=== PATIENT | male | born 1960 | race Caucasian/White ===

== ENCOUNTER 2016-12-24 21:04 | Inpatient (IN) ==
[2016-12-24] MEDS: NS 1,000 ML IV ONE ×4 (21:25→21:33)
[2016-12-24] MEDS ORDERED: ZOFRAN IV ONE (21:35)
[2016-12-24 21:45] LABS: BASO% 0.8 % (0.0-0.8); EOS# 0.09 X1000 (0.0-0.7); EOS% 0.4 % (0.0-10.0); HEMATOCRIT 46.6 % (42.0-52.0); HEMOGLOBIN 15.7 g/dL (14.0-18.0); IMM GRAN# 0.06 X1000 (0.0-0.04); IMM GRAN% 0.3 % (0.0-0.5); LYMPH# 3.15 X1000 (1.2-3.4); LYMPH% 15.5 % (20.5-51.1); MANUAL DIFF NEEDED? NO; MCH 29.9 PG (27-31); MCHC 33.7 g/dL (33-37); MCV 88.8 FL (81-99); MONO% 4.9 % (1.7-9.3); MPV 10.6 FL (7.4-10.4); NEUT% 78.1 % (42.2-75.2); PLT 369 X1000 (130-400); RBC 5.25 XMIL (4.7-6.1)
[2016-12-24] MEDS ORDERED: NS 1,000 ML ONE (21:51)
[2016-12-24] MEDS ORDERED: NS 1,000 ML IV ONE ×2 (21:55→21:58)
[2016-12-24 22:07] LABS: ALBUMIN 4.7 g/dL (3.5-5.0); POTASSIUM 4.4 mmol/L (3.5-5.1); TOTAL BILIRUBIN 0.35 mg/dL (0.20-1.00); TOTAL PROTEIN 7.8 g/dL (6.3-8.3)
--- NOTE | 2016-12-24 22:38 | Diag Imaging Result Doc PS360 ---
EXAM: ABDOMEN/PELVIS W/O CONTRAST HISTORY: vomiting, hypotensive TECHNIQUE: COMPARISON: 04/12/2015 FINDINGS: No calcified gallstones or adjacent inflammation. I believe there is at least mild fatty infiltration of the liver. Normal spleen and adrenal glands. Normal noncontrasted pancreas. There is a 5.5 cm left renal cyst. No renal stones. No hydronephrosis. No aortic aneurysm. No bowel obstruction. There is a large right inguinal hernia containing bowel loops. No bowel obstruction. Normal appendix. There are scattered diverticula particularly in the descending and sigmoid colon. No abscess. The urinary bladder is not distended. 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 Electronically signed by Samuel Aguilar 12/24/2016 10:35 PM
[2016-12-24] MEDS ORDERED: VANCOMYCIN 1 GM/NS 1 GM/250 ML IVPB IV ONE (23:01)
[2016-12-24] MEDS ORDERED: ZOSYN 3.375 GM/NS 3.375 GM/50 ML IVPB IV ONE (23:01)
--- NOTE | 2016-12-24 23:02 | ED EKG INTERP ---
This chart was entered by Lisa Boyd Scribe, acting as scribe for Ramon Greer MD. EKG Interpretation - EKG Time of EKG reading by physician:: 21:01 EKG Read and Signed by:: Ramon Greer EKG Interpretation (*Must complete 3 of following elements*): Normal Rate: 103 Rhythm: Sinus Tachycardia Comments: Borderline ECG, Possible left atrial enlargement This chart was documented by the indicated scribe, (Lisa Boyd Scribe) and accurately reflects the services I performed and decisions made by me, Ramon Greer MD, as attested by the provider's signature.
[2016-12-24] MEDS: LEVOPHED 8 MG in D5 1/2 NS 250 ML IV SCH ×3 (23:20→23:49)
--- NOTE | 2016-12-24 23:32 | PROVIDER DOCUMENTATION ---
This chart was entered by Lisa Boyd Scribe, acting as scribe for Ramon Greer MD. HPI-Chest Pain - General Chief Complaint: Chest Pain Stated Complaint: PALPATITIONS Time Seen by Provider: 12/24/16 21:33 Source: patient Allergies/Adverse Reactions: Patient Allergies Allergy/AdvReac Type Severity Reaction Status Date / Time latex Allergy RASH Verified 12/24/16 21:41 shellfish derived Allergy SWELLING Verified 12/24/16 21:41 Home Medications: Home Medication List Medication Instructions Recorded Confirmed Last Taken Type Lisinopril 20 mg PO DAILY 10/13/16 12/24/16 12/24/16 History Cholecalciferol (Vit D3) [Vitamin 0 unit PO TH 12/24/16 12/24/16 12/18/16 History D3] UNK Metformin [Glucophage] 500 mg PO BID CC 12/24/16 12/24/16 12/24/16 History Omeprazole [Prilosec] 40 mg PO DAILY@0700 12/24/16 12/24/16 12/24/16 History Sertraline HCl 100 mg PO DAILY 12/24/16 12/24/16 12/24/16 History - History of Present Illness-CP Nature of Presenting Problem: 56 Y/O M presents to ED with Chest Pain. Pt states V which began last night and denies Diarrhea. C/o of mild epigastric cramping pain, and now pressure. Weak, dizzy, diaphoretic, for the last few hours. Location: reports: epigastric Chest Pain Radiation: reports: no radiation Quality of Pain: reports: cramping, pressure Severity in ED: moderate Onset/Duration: last night Timing: still present Context/Activities at Onset: reports: none Associated Symptoms: reports: diaphoresis, dizziness, vomiting, weakness. denies: fever/chills, shortness of breath, syncope Nitro Today/Relief: no nitro taken today Aspirin Treatment Today: no aspirin today Similar Symptoms Previously?: No Recently Seen Here or By Another Healthcare Provider: No Review of Systems - Adult - REVIEW OF SYSTEMS - ADULT Constitutional: denies: chills, fever Eyes: reports: no symptoms reported Ears, Nose, Mouth & Throat: reports: no symptoms reported Cardiovascular: reports: chest pain Respiratory: denies: cough, shortness of breath Gastrointestinal: reports: vomiting. denies: abdominal pain Genitourinary: reports: no symptoms reported Musculoskeletal: reports: muscle weakness Integumentary: reports: no symptoms reported Neurological: reports: dizziness/vertigo. denies: headache/migraines, numbness Psychiatric: reports: no symptoms reported Endocrine: reports: no symptoms reported Hematologic/Lymphatic: reports: no symptoms reported Allergic/Immunologic: reports: no symptoms reported All Other Systems: Reviewed and Negative Past History - Adult - PAST MEDICAL HISTORY-ADULT Review of Records: reports: Old Records Reviewed, Nursing Assessment Review, Medications Reviewed, Social history reviewed & non-contributory. Major Childhood Illnesses: reports: denies history Cardiovascular: reports: HTN, hyperlipidemia Respiratory: reports: denies history Gastrointestinal: reports: other (patient states he has had "bladder cancer" but no chemo or radiation) Obstetrical/Gynecological: reports: denies history Genitourinary: reports: denies history Musculoskeletal: reports: denies history Neurological: reports: denies history Psychiatric: reports: bipolar, schizophrenia Endocrine/Immune: reports: denies history Other Conditions: reports: denies history - IMMUNIZATION STATUS Childhood Immunizations: UTD Flu Vaccine: UTD - FAMILY HISTORY Family History: reviewed, not pertinent Physical Exam-General - PHYSICAL EXAM-ADULT Initial Vital Signs Reviewed: Yes - CONSTITUTIONAL General Appearance: appears well, alert, no apparent distress - EYES Eyes: pink conjunctivae - HEAD, EARS, NOSE, MOUTH & THROAT HENMT: moist mucous membranes, normal ENT inspection, TMs normal, pharynx normal - NECK Neck: full range of motion, supple, normal inspection - RESPIRATORY Respiratory: lungs clear, normal breath sounds - CARDIOVASCULAR Cardiovascular: regular rate, rhythm, no edema, no gallop, no JVD, no murmur - GASTROINTESTINAL (ABDOMEN) Abdominal Exam: tenderness (mild moderate epi tenderness) - LYMPHATIC Lymphatic: no adenopathy - MUSCULOSKELETAL Back Exam: normal inspection - SKIN Integumentary: normal color, normal turgor, warm/dry - NEUROLOGIC Neurologic: grossly normal - PSYCHIATRIC Psych/Mental Status: normal thought content, normal thought process, oriented x 3 Progress - PLAN OF CARE/RESULTS Progress/Plan/Lab Results: Vital Signs - 8 hr 12/24/16 21:09 12/24/16 21:45 12/24/16 22:17 Temperature 98.2 F Pulse Rate 96 H 87 78 Respiratory Rate 22 20 12 Blood Pressure 90/55 91/51 90/46 O2 Sat by Pulse Oximetry 98 99 99 12/24/16 23:23 Temperature Pulse Rate 85 Respiratory Rate 19 Blood Pressure 87/52 O2 Sat by Pulse Oximetry 96 Laboratory Results - last 24 hr 12/24/16 12/24/16 12/24/16 20:20 20:20 21:20 WBC RBC Hgb Hct MCV MCH MCHC RDW Std Deviation Plt Count MPV Immature Gran % (Auto) Neut % (Auto) Lymph % (Auto) [place] % (Auto) Eos % (Auto) Baso % (Auto) Immature Gran # (Auto) Neut # (Auto) Lymph # (Auto) [place] # (Auto) Eos # (Auto) Baso # (Auto) Sodium 137 Potassium 4.4 Chloride 96 L Carbon Dioxide 14 L Anion Gap 27 BUN 48 H Creatinine 6.3 H Estimated GFR/1.73 m2 9 BUN/Creatinine Ratio 8 Glucose 200 H Calculated Osmolality 292 Calcium 9.0 Total Bilirubin 0.35 AST 11 ALT 10 Alkaline Phosphatase 118 Creatine Kinase 72 Troponin T < 0.010 Total Protein 7.8 Albumin 4.7 Globulin 3.1 Albumin/Globulin Ratio 1.5 Lipase 45 Plasma Lactate 3.7 H 12/24/16 21:20 WBC 20.27 H RBC 5.25 Hgb 15.7 Hct 46.6 MCV 88.8 MCH 29.9 MCHC 33.7 RDW Std Deviation 14.2 Plt Count 369 MPV 10.6 H Immature Gran % (Auto) 0.3 Neut % (Auto) 78.1 H Lymph % (Auto) 15.5 L [place] % (Auto) 4.9 Eos % (Auto) 0.4 Baso % (Auto) 0.8 Immature Gran # (Auto) 0.06 H Neut # (Auto) 15.81 H Lymph # (Auto) 3.15 [place] # (Auto) 1.00 H Eos # (Auto) 0.09 Baso # (Auto) 0.16 Sodium Potassium Chloride Carbon Dioxide Anion Gap BUN Creatinine Estimated GFR/1.73 m2 BUN/Creatinine Ratio Glucose Calculated Osmolality Calcium Total Bilirubin AST ALT Alkaline Phosphatase Creatine Kinase Troponin T Total Protein Albumin Globulin Albumin/Globulin Ratio Lipase Plasma Lactate Orders Category Date Time Status ABDOMEN/PELVIS W/O CONTRAST [CT] Stat Exams 12/24/16 21:59 Completed BLOOD CULTURE [BLDCUL] Stat Lab 12/24/16 21:45 Results CBC WITH ELECTRONIC DIFF [HEME] Stat Lab 12/24/16 21:20 Completed CK PROFILE [SP CHEM] Stat Lab 12/24/16 20:20 Completed CMP [COMPREHENSIVE METABOLIC PANEL] [CHEM] Stat Lab 12/24/16 20:20 Completed LACTATE, PLASMA [CHEM] Stat Lab 12/24/16 21:20 Completed LACTATE, PLASMA [CHEM] Timed Lab 12/25/16 00:30 Ordered LIPASE [CHEM] Stat Lab 12/24/16 20:20 Completed TROPONIN T Stat Lab 12/24/16 20:20 Completed UA [UA NIMS W/REFLEX CULT] [URINALYSIS] Stat Lab 12/24/16 21:33 Uncollected 0.9% Sodium Chloride Inj [Ns] 1,000 ml Med 12/24/16 21:51 Discontinued .ROUTE As Directed 0.9% Sodium Chloride Inj [Ns] 1,000 ml Med 12/24/16 21:32 Discontinued IV 999 mls/hr 0.9% Sodium Chloride Inj [Ns] 1,000 ml Med 12/24/16 21:33 Discontinued IV 999 mls/hr 0.9% Sodium Chloride Inj [Ns] 1,000 ml Med 12/24/16 21:55 Discontinued IV 999 mls/hr 0.9% Sodium Chloride Inj [Ns] 1,000 ml Med 12/24/16 21:58 Discontinued IV 999 mls/hr Dextrose 5%-0.45% NaCl Inj [D5 1/2 Ns] 250 ml Med 12/24/16 23:15 Active Norepinephrine [Levophed] 8 mg IV As Directed Ondansetron [Zofran] Med 12/24/16 21:35 Discontinued 8 mg IV NOW ONE Piperacil/Tazobact 3.375 gm/Ns [Zosyn 3.375 gm/Ns] Med 12/24/16 23:01 Discontinued 3.375 gm in 50 ml IV NOW Vancomycin 1 gm/Ns Med 12/24/16 23:01 Active 1 gm in 250 ml IV NOW EKG [EKG] Stat Ther 12/24/16 21:07 Ordered Result Diagrams: 12/24/16 21:20 12/24/16 20:20 - CONSULTS/PCP/HOSPITALIST Notification #1 *Consult/PCP/Hospitalist*: Dr Sommer Time Discussed: 23:31 Consult Disposition: Will see in ED, Admit Departure - Departure Date of Disposition Decision: 12/24/16 Time of Disposition Decision: 23:31 DIAGNOSIS: Lactic acidosis, ALEX (acute kidney injury) Hypotension Qualifiers: Hypotension type: unspecified hypotension type Qualified Code(s): I95.9 - Hypotension, unspecified Disposition: ADMITTED INPATIENT 09 Certified Medical Emergency: Emergent Condition: Serious - Critical Care Note This patient required my direct & personal management of CC.: Yes Total Time (mins): 120 Critical Care Statement: This patient required my direct personal management to treat or rule out processes, the absence of which, could potentiallly result in sudden, clinically significant life or limb threatening deterioration. This chart was documented by the indicated scribe, (Lisa Boyd Scribe) and accurately reflects the services I performed and decisions made by me, Ramon Greer MD, as attested by the provider's signature.
[2016-12-24 23:57] LABS: HEMOGLOBIN A1C 5.8 % (4.8-6.0)
[2016-12-25 00:34] LABS: URINE MICRO REVIEW NEEDED? NO; URINE SOURCE CATH
[2016-12-25 00:39] LABS: BILIRUBIN URINE SMALL (NEGATIVE); BLOOD URINE SMALL (NEGATIVE); COLOR YELLOW; GLUCOSE URINE NEGATIVE (NEGATIVE); PROTEIN URINE 100 mg/dL (NEGATIVE); SP GRAVITY URINE > 1.030; TURBIDITY URINE CLEAR (CLEAR)
[2016-12-25 00:40] LABS: LEUKOCYTES URINE TRACE (NEGATIVE); NITRITE URINE NEGATIVE (NEGATIVE); UROBILINOGEN URINE NORMAL (NORMAL)
[2016-12-25 00:43] LABS: UR EPITHELIAL CELLS <10 /HPF (<10); URINE BACTERIA NEGATIVE /HPF; URINE CULTURE NEEDED? YES; URINE RBC <10 /HPF (<10); URINE WBC <10 /HPF (<10)
[2016-12-25] MEDS ORDERED: ZOSYN 2.25 GM/NS 2.25 GM/50 ML IVPB IV ONE (01:13)
[2016-12-25] MEDS ORDERED: VANCOMYCIN IV PER PHARMACY MISC SCH (01:13)
[2016-12-25] MEDS ORDERED: SODIUM CHLORIDE 0.9% INJ SCH (01:13)
[2016-12-25] MEDS ORDERED: PROTONIX IV SCH (01:13)
[2016-12-25] MEDS: SODIUM CHLORIDE 0.9% INJ SCH (02:10)
[2016-12-25] MEDS: NEXIUM IV SCH (02:10)
[2016-12-25] MEDS: LOVENOX SUBQ SCH (02:10)
[2016-12-25] MEDS: NS 1,000 ML IV SCH ×4 (02:10→23:48)
[2016-12-25] MEDS ORDERED: VANCOMYCIN 1,200 MG in NS 250 ML IV ONE (03:00)
--- NOTE | 2016-12-25 04:24 | HISTORY AND PHYSICAL ---
PRIMARY CARE PHYSICIAN: None. CHIEF COMPLAINT: Nausea, vomiting, and generalized weak. HISTORY OF PRESENT ILLNESS: This is a 56-year-old, male with a past medical history of diabetes, hypercholesterolemia, hypertension, and vitamin D deficiency who presented to the emergency department complaining of nausea and vomiting. The patient reports that he started vomiting last night and until today so far, he had 12 episodes of vomiting. He denies any diarrhea. Tonight, he reports that he was feeling very weak. He also reports chest pain that he described like somebody was sitting on his chest. That was located in the central thoracic area. That lasted between 3 and 5 minutes. It resolved by itself. No aggravating or alleviating factors. It was like 7 to 8/10 in intensity. Because it was associated with dizziness and he was feeling also that he was about to pass out, he decided to present to the emergency department. Here in the ER, he was found to be hypotensive with a high white cell count, fever, and tachycardic so we were called for admission. The patient is going to be admitted to the hospital for further evaluation and treatment. PAST MEDICAL HISTORY: 1. Diabetes mellitus type 2. It is important to remark that this patient was recently started on metformin 2 weeks ago. 2. Hypercholesterolemia. 3. Hypertension. 4. Vitamin D deficiency. 5. Bipolar disorder. 6. Schizophrenia. PAST SURGICAL HISTORY: 1. Kidney stone removal. 2. History of bladder cancer. SOCIAL HISTORY: Patient lives with his . He denies drinking alcohol. He reports smoking 1 pack per day for the last 20 years. He denies using illicit drugs. ALLERGIES: Patient is allergic to shellfish. FAMILY HISTORY: Noncontributory. REVIEW OF SYSTEMS: Eleven systems were reviewed and all symptoms were related to H and P. PHYSICAL EXAMINATION: VITAL SIGNS: Temperature 98.2 degrees, heart rate 102, respiratory rate 22, blood pressure 72/47, O2 saturation 98% on room air. GENERAL EXAMINATION: This is a 56-year-old, chronically ill-looking, male lying in bed in no acute distress. HEENT: Head is normocephalic and atraumatic. Anicteric sclerae and pale conjunctivae. Mucous membranes are moist. NECK: Supple. No JVD noted. No carotid bruits. No lymphadenopathy. No thyromegaly. CARDIOVASCULAR: S1 and S2 heard. Tachycardic. No murmurs, gallops, or rubs. Regular rate and rhythm. RESPIRATORY: Clear bilaterally to auscultation. No work of breathing or using accessory muscles. ABDOMEN: Mild tenderness to palpation in the epigastric area. There are no signs of peritoneal irritation. No organomegaly. EXTREMITIES: No clubbing, cyanosis, or edema. Peripheral pulses present in both legs. NEUROLOGICAL: Patient is alert and oriented x3. Moves 4 extremities. Cranial nerves 2-12 are grossly normal. LABORATORY DATA: White cell count 20.27, with hemoglobin 15.7, hematocrit 46.6, platelets 369,000. BMP is remarkable for BUN 48, creatinine 6.3, and lactate is 3.7. The urinalysis is basically unremarkable. The CT of the abdomen and pelvis showed a large right inguinal hernia containing multiple bowel loops but no bowel obstruction, no wall thickening, diverticulosis, left renal cyst. ASSESSMENT AND PLAN: 1. Sepsis. The patient presented to the emergency department because of generalized weakness. He was vomiting a lot and was He was not sure about spiking fever. In any case, because all of those symptoms point to sepsis, although we do not know the source, we are going to start this patient on aggressive fluid resuscitation and also broad-spectrum antibiotics. Currently, he is receiving vancomycin and Zosyn. We are going to continue with normal saline at 150 mL per hour. We will see how this patient does. 2. Acute kidney injury. According to previous a visit, the creatinine was completely normal. According to him, patient was no making urine in the last 24 hours so for this acute kidney injury with anuria, we are going to provide aggressive fluid resuscitation and will, of course, consult Dr. Hernandez from nephrology and we will see what he has to say. 3. Diabetes mellitus type 2. Patient was taking metformin so I do not know if he developed lactic acidosis because of this medication. It has been 2 weeks since he started this medication. In any case, we prefer to hold this medication and use sliding scale insulin. 4. Hypertension. Because of this low blood pressure secondary to sepsis, we have held all antihypertensive medications. 5. Vitamin D deficiency. We will continue to supplement vitamin D. 6. Bipolar disorder/schizophrenia, aware. We will continue with all home medications. 7. Further recommendations to follow according to the clinical situation of the patient. cc: Mik Horton MD
[2016-12-25] MEDS: ZOSYN 2.25 GM/NS 2.25 GM/50 ML IVPB IV SCH ×2 (05:00→16:27)
--- NOTE | 2016-12-25 05:24 | EKG Report ---
Test Performed on : 12/24/2016 9:01:57 PM Test Reason : PALPATITIONS Blood Pressure : / mmHG Vent. Rate : 103 BPM Atrial Rate : 103 BPM P-R Int : 136 ms QRS Dur : 076 ms QT Int : 342 ms P-R-T Axes : 075 078 078 degrees QTc Int : 448 ms Sinus tachycardia. Possible Left atrial enlargement Borderline ECG When compared with ECG of 29-DEC-2010 09:07, No significant change was found Unconfirmed Result
[2016-12-25 05:54] LABS: ALLEN TEST YES; BE -9.8 mmoll (-3.0-3.0); BLOOD TYPE ARTERIAL; DRAW SITE R RADIAL; METHB 0.9 % (0.0-1.5); MODALITY ROOM AIR; O2(CT) 18.5 mL/dL (15.0-23.0); PCO2(98.6) 34 mmHg (35-45); PO2(98.6) 87 mmHg (60-100); SAMPLE BLOOD; SAO2 98.6 % (95.0-100.0); THB 13.7 g/dL (11.5-17.4); pH(98.6) 7.28 (7.35-7.45)
[2016-12-25 05:59] LABS: MANUAL DIFF NEEDED? NO
[2016-12-25 06:08] LABS: BASO% 0.3 % (0.0-0.8); EOS# 0.32 X1000 (0.0-0.7); EOS% 1.7 % (0.0-10.0); HEMATOCRIT 40.2 % (42.0-52.0); HEMOGLOBIN 13.4 g/dL (14.0-18.0); IMM GRAN# 0.07 X1000 (0.0-0.04); IMM GRAN% 0.4 % (0.0-0.5); LYMPH# 4.79 X1000 (1.2-3.4); LYMPH% 25.6 % (20.5-51.1); MCH 30.2 PG (27-31); MCHC 33.3 g/dL (33-37); MCV 90.5 FL (81-99); MONO# 1.45 X1000 (0.11-0.59); MONO% 7.8 % (1.7-9.3); MPV 10.4 FL (7.4-10.4); NEUT% 64.2 % (42.2-75.2); PLT 304 X1000 (130-400); RBC 4.44 XMIL (4.7-6.1)
[2016-12-25 06:26] LABS: CALCIUM 7.2 mg/dL (8.8-10.2); POTASSIUM 4.3 mmol/L (3.5-5.1)
[2016-12-25] MEDS: HUMALOG SUBQ SCH ×4 (06:28→21:30)
--- NOTE | 2016-12-25 07:22 | Diag Imaging Result Doc PS360 ---
EXAM: CHEST-PORTABLE HISTORY: hypotension TECHNIQUE: AP portable at 2355 COMMENT: The inspiration is less optimal than on the previous study of 07/24/2013. Otherwise, there is been no appreciable change. IMPRESSION: Stable chest. Electronically signed by uZhair Macedo 12/25/2016 7:19 AM
[2016-12-25 07:33] LABS: URINE CULTURE NEEDED? NO; URINE SOURCE CATH
[2016-12-25 07:36] LABS: BILIRUBIN URINE NEGATIVE (NEGATIVE); BLOOD URINE SMALL (NEGATIVE); COLOR ORANGE; GLUCOSE URINE NEGATIVE (NEGATIVE); LEUKOCYTES URINE NEGATIVE (NEGATIVE); NITRITE URINE NEGATIVE (NEGATIVE); PH URINE 5.5; PROTEIN URINE 30 mg/dL (NEGATIVE); SP GRAVITY URINE 1.014; TURBIDITY URINE HAZY (CLEAR); UROBILINOGEN URINE NORMAL (NORMAL)
[2016-12-25 07:37] LABS: URINE MICRO REVIEW NEEDED? YES
[2016-12-25 07:43] LABS: UR EPITHELIAL CELLS <10 /HPF (<10); URINE BACTERIA NEGATIVE /HPF; URINE RBC <10 /HPF (<10); URINE WBC <10 /HPF (<10)
[2016-12-25 07:45] LABS: UR CREAT RANDOM 138.7 mg/dL (14-26); UR PROT RANDOM 44.2 mg/dL
[2016-12-25 07:49] LABS: URINE CASTS NONE SEEN
[2016-12-25] MEDS: VITAMIN D PO SCH (08:18)
[2016-12-25] MEDS: ZOLOFT PO SCH (08:18)
[2016-12-25] MEDS: NICODERM PATCH TD SCH (08:55)
--- NOTE | 2016-12-25 10:13 | Diag Imaging Result Doc PS360 ---
EXAM: CT THORAX W/O CONTRAST HISTORY: pna TECHNIQUE: CT chest without contrast. Dose reduction protocol. COMPARISON: None. FINDINGS: Trace pleural fluid. There is bilateral basilar atelectasis. No cardiomegaly. No thoracic aortic aneurysm. There are multiple mildly prominent mediastinal lymph nodes. No consolidation. No bronchiectasis. I do not identify a lung mass. IMPRESSION: 1.No pneumonia 2.Basilar atelectasis with trace pleural fluid Electronically signed by Samuel Aguilar 12/25/2016 10:10 AM
[2016-12-25] MEDS: ZOFRAN IV PRN (10:27)
--- NOTE | 2016-12-25 10:30 | Diag Imaging Result Doc PS360 ---
US RENAL 2 (RETROPER) COMPLETE - 12/25/2016 INDICATION: acute oliguric renal failure TECHNIQUE: COMPARISON: CT from yesterday FINDINGS: There is a stable left renal cyst at the lower pole. This measures 4.8 x 4.6 x 5.2 cm. No hydronephrosis or hydroureter. Renal sizes are normal and background renal echotexture is normal. The right kidney measures 10.8 x 4.9 x 5.8 cm. Cortex measures 13 mm. The left kidney measures 10.8 x 5.4 x 6.3 cm. Cortex measures 12 mm. The urinary bladder is collapsed by a Hollins catheter and otherwise normal. IMPRESSION: Benign left renal cyst. Otherwise unremarkable exam. Electronically signed by Sean Neil 12/25/2016 10:28 AM
--- NOTE | 2016-12-25 13:21 | ECHO REPORT ---
ORDER DATE: 12/25/2016 INDICATIONS: 1. Hypertension. 2. Chest pain. 3. Tobacco abuse. FINDINGS: 1. The right atrium is mildly enlarged at 4 cm. 2. Trace tricuspid regurgitation. RV systolic pressure of 34. 3. Normal RV size and systolic function. 4. Trace pulmonic insufficiency. 5. Mild left atrial enlargement at 4.2 cm. 6. No mitral prolapse. Trace mitral regurgitation. 7. Normal left ventricular size. End-diastolic dimension of 4.3. Normal wall thicknesses with a posterior and interventricular septal wall thickness 1 cm each. Normal left ventricular systolic function. Estimated ejection fraction of 60% with normal wall motion. 8. Aortic valve opens well. No evidence of stenosis or insufficiency. 9. Aorta appears normal on visualized segments. 10. No pericardial effusion seen. cc: MD Mik Burt MD
--- NOTE | 2016-12-25 13:39 | CONSULTATION ---
DATE OF CONSULTATION: 12/25/2016 REASON FOR ADMISSION: Nausea and vomiting with generalized weakness. REASON FOR CONSULT: Acute kidney injury. CONSULTING PHYSICIAN: Dr. Costa. HISTORY OF PRESENT ILLNESS: Mr. Green is a 56-year-old white male with a past medical history of diabetes, hypercholesterolemia, hypertension, vitamin D deficiency, and bipolar disorder. Patient stated that he had been in his usual state of health until Thursday, at which time he stated he started with some complaints of nausea and abdominal cramping. He stated that Thursday it became worse into Thursday and he continued to vomit all night. He stated that he had had over 12 episodes and became very, very weak. He denies any diarrhea. He does state that he has had some chest pain that was pressure on his chest. No increased work of breathing with this. He stated that this lasted for 3-5 minutes. No relieving factors; it just went away. Nothing aggravated it, not even increased inspiration. Patient stated that he had become severely dizzy. He states that he did not pass out. Subsequently, he was brought to [facility] Emergency Department. He was found to be severely hypotensive, white cell count was elevated, he had a fever upon presentation, and was tachycardic. Patient was subsequently admitted yesterday evening. It was noted that his creatinine was 6.3 with a white count in the 18-range. He was started on some IV fluid boluses. He is on sepsis protocol. He was treated with vancomycin and Zosyn. They have stopped his SYLVIA. They have also stopped his metformin, which patient states he did continue to try to get down yesterday morning. PAST MEDICAL HISTORY: Diabetes mellitus, type 2, recently started on metformin 2 weeks ago. Hypercholesterolemia. Hypertension. Vitamin D deficiency. Bipolar disorder. Schizophrenia. PAST SURGICAL HISTORY: He has had kidney stone removal with a history of bladder cancer. He states he is followed by Dr. Lucas. SOCIAL HISTORY: He lives with his . Denies alcohol or illicit drug use. Does report smoking 1 pack per day for the last 20 years. FAMILY HISTORY: Noncontributory. He denies any heart or renal problems. ALLERGIES: Listed to shellfish. HOME MEDICATIONS: Lisinopril, sertraline, metformin, vitamin D3, and omeprazole. REVIEW OF SYSTEMS: Review of systems x10 with pertinent positives listed above in the HPI. PHYSICAL EXAMINATION: Vital Signs: Most recent vital signs are temperature 98.5 degrees, blood pressure 91/54, heart rate 63, respirations 12. He is on room air. Last recorded saturation 94%. He has had 1050 in and 695 out per Hollins catheter. General: This is a 56-year- old white male. He is currently resting in bed. He is in no acute distress. Skin: Warm and dry. HEENT: Normocephalic, atraumatic. Conjunctivae pink. He has ARLETTE. Mucous membranes are dry. Neck: Supple. Trachea midline. No JVD. Cardiovascular: He has regular rate and rhythm. No murmur or gallop appreciated. Lungs: Clear to auscultation anteriorly. He remains on room air. Equal excursion. Abdomen: Positive bowel sounds. Nontender at rest. Otherwise, he does have just mild tenderness to palpation of the mid epigastric area. Genitourinary: Not inspected. Patient has Hollins catheter in place with adequate urine out. Extremities: No edema. No clubbing or cyanosis. Neurologic: He is alert and oriented x3. LABORATORIES AND IMAGING: Sodium 137, potassium 4.3, chloride 105, CO2 of 15, BUN 44, creatinine 4.9, and glucose 104. Anion gap 17. Calcium 7.2. Albumin 4.7. White count 18.68, hemoglobin 13.4, hematocrit 40.2, and platelet count of 304,000. ABGs: pH 7.28, CO2 of 34 , PO2 of 87, bicarbonate 17.2. This was on room air. Patient had urine electrolytes completed, indicating a FENa score of 2.11%, more intrarenal. Renal ultrasound indicates right kidney measuring 10.8, left measuring 10.8, with a noncomplicated renal cyst on the left. ASSESSMENT AND PLAN: 1. Acute kidney injury. The patient has evidence of dehydration with SYLVIA effect. (impaired autoregulation). These have currently been stopped. We are in agreement with continuing his IV fluids for resuscitation. Patient has already improved from 6.3 to 4.9 creatinine. Renal ultrasound is negative. 2. Sepsis protocol. Patient continues on renal-dosed vancomycin and Zosyn. No indications for any changes. 3. Electrolytes. These are stable. 4. Acid-base balance. Patient remains acidotic. Anion gap is mildly elevated. Due to patient's level of consciousness and being awake, we would prefer that he be started on oral sodium bicarbonate, since there is an IV bicarbonate shortage. We have spoken to the primary care team. They state that they will get this started once he starts taking p.o. medications. 5. Anemia. This is in target. 6. Hematuria. Hollins trauma. Observe. Remove in am. rg I would like to thank you for allowing us to follow with this patient. Seen, data reviewed, discussed with Yahir Alexander on 12/25/16. I agree with the above assessment and plan of care. rg Dictated by JACKELINE Khanna for Andrae Hernandez MD cc: JACKELINE Khanna MD [facility]
--- NOTE | 2016-12-25 15:01 | CONSULTATION ---
DATE OF CONSULTATION: 12/25/2016 CARDIOLOGY CONSULT NOTE: IMPRESSION: 1. Brief episode of chest pain in the setting of vomiting. Symptoms atypical for myocardial ischemia, more likely related to upper gastrointestinal etiology. 2. Persistent nausea and vomiting for several days. 3. Acute renal failure. 4. Hypertension. 5. Type 2 diabetes mellitus. 6. Hyperlipidemia. 7. Bipolar disorder. 8. History of bladder cancer, previous resection. RECOMMENDATIONS: 1. Follow up echocardiography. 2. Repeat cardiac enzymes, but doubt myocardial insult. 3. Conservative plans from a cardiovascular standpoint at present in light of patient's intravascular volume depletion and acute renal failure. Given patient's coronary risk profile, he ultimately would benefit from screening stress myocardial perfusion study but this could reasonably be done as an outpatient unless there is clear evidence of ongoing cardiac instability. HISTORY: This 56-year-old white male with past history of hypertension, type 2 diabetes mellitus, hyperlipidemia, bipolar disorder, and smoking was admitted with nausea and vomiting over the last couple days. With one episode he had some chest pressure that lasted perhaps 3-5 minutes. He has not had any other chest symptoms. On presentation he was found to have hypotension and acute renal failure. The episode of chest discomfort occurred yesterday when he tried to eat a sandwich in the midst of all this and subsequently vomited it right back up. With this he felt some chest pressure lasting 3-5 minutes. PAST MEDICAL HISTORY: 1. Hypertension. 2. Hyperlipidemia. 3. Type 2 diabetes mellitus. 4. Bipolar disorder. 5. Bladder cancer and previous resection. 6. Vitamin D deficiency. PAST SURGICAL HISTORY: Includes bladder surgery and removal of kidney stone. ALLERGIES: He is allergic or intolerant to shellfish and latex. MEDICATIONS: As listed. SOCIAL HISTORY: He lives with his . He is disabled. He smokes 1 pack of cigarettes per day and has done so for at least 20 years. He does not use alcohol. FAMILY HISTORY: Negative for premature coronary artery disease. REVIEW OF SYSTEMS: Pulmonary: Negative for dyspnea. There has been no cough. Gastrointestinal: Noteworthy for nausea and vomiting. There has been no melena or bright red blood per rectum. Constitutional: Noteworthy for malaise for several days prior to the development of acute GI distress. Remainder of review of systems negative/noncontributory with 14 total systems reviewed. PHYSICAL EXAMINATION: General: A middle-aged male in no distress. Vital Signs: As recorded. Include a blood pressure of 90/52, heart rate 60 and regular, with ECG monitor showing sinus rhythm. HEENT: Extraocular movements intact. Mucous membranes are moist. Neck: Supple without jugular venous distention. There are no carotid bruits. Chest: Clear to auscultation. Cardiac Exam: Reveals a regular rate and rhythm without appreciable murmur or gallop. Abdomen: Soft. Bowel sounds are normal. Extremities: Without edema. Neurologic Exam: Reveals him to be alert, fully oriented. Speech is fluent. Moves all 4 extremities equally well. Skin: Warm dry. Psychiatric: Reveals mood to be appropriate. DIAGNOSTIC DATA: ECG demonstrates sinus tachycardia but is otherwise within normal limits. cc: Jerry Melgar MD
[2016-12-25] MEDS: SODIUM BICARBONATE PO SCH (20:48)
[2016-12-26] MEDS: SODIUM CHLORIDE 0.9% INJ SCH (01:56)
[2016-12-26] MEDS: LOVENOX SUBQ SCH (01:56)
[2016-12-26] MEDS: NEXIUM IV SCH (01:56)
[2016-12-26] MEDS: ZOSYN 2.25 GM/NS 2.25 GM/50 ML IVPB IV SCH ×2 (05:00→15:10)
--- NOTE | 2016-12-26 05:13 | EKG Report ---
Test Performed on : 12/25/2016 2:23:02 PM Test Reason : cp Blood Pressure : / mmHG Vent. Rate : 060 BPM Atrial Rate : 060 BPM P-R Int : 184 ms QRS Dur : 080 ms QT Int : 402 ms P-R-T Axes : 061 079 059 degrees QTc Int : 402 ms Normal sinus rhythm. Normal ECG When compared with ECG of 24-DEC-2016 21:01, (Unconfirmed) Vent. rate has decreased BY 43 BPM Confirmed by Darien Rodriguez MD ([id number]) on 12/30/2016 6:01:07 AM
[2016-12-26 05:47] LABS: MANUAL DIFF NEEDED? NO
[2016-12-26 05:50] LABS: BASO% 0.8 % (0.0-0.8); EOS# 0.27 X1000 (0.0-0.7); EOS% 2.6 % (0.0-10.0); HEMATOCRIT 36.9 % (42.0-52.0); HEMOGLOBIN 12.2 g/dL (14.0-18.0); IMM GRAN# 0.03 X1000 (0.0-0.04); IMM GRAN% 0.3 % (0.0-0.5); LYMPH# 2.71 X1000 (1.2-3.4); LYMPH% 25.7 % (20.5-51.1); MCH 30.3 PG (27-31); MCHC 33.1 g/dL (33-37); MCV 91.8 FL (81-99); MONO# 0.87 X1000 (0.11-0.59); MONO% 8.3 % (1.7-9.3); MPV 10.1 FL (7.4-10.4); NEUT% 62.3 % (42.2-75.2); PLT 272 X1000 (130-400); RBC 4.02 XMIL (4.7-6.1)
[2016-12-26] MEDS: NS 1,000 ML IV SCH ×4 (06:11→23:11)
[2016-12-26 06:16] LABS: CALCIUM 7.9 mg/dL (8.8-10.2); POTASSIUM 4.5 mmol/L (3.5-5.1)
[2016-12-26] MEDS: HUMALOG SUBQ SCH ×4 (06:20→20:55)
[2016-12-26] MEDS: SODIUM BICARBONATE PO SCH ×2 (08:25→20:57)
[2016-12-26] MEDS: VITAMIN D PO SCH (08:25)
[2016-12-26] MEDS: NICODERM PATCH TD SCH (08:25)
[2016-12-26] MEDS: ZOLOFT PO SCH (08:25)
--- NOTE | 2016-12-26 09:26 | PROGRESS NOTE ---
DATE: 12/26/2016 SUBJECTIVE: He states he feels well today. Still lying in bed. OBJECTIVE: Vital Signs: Blood pressure 98/59, heart rate 57, respirations 16, afebrile. Intake 4.4 L. Output 3.1 L. General Appearance: No acute distress. Skin: Warm and dry. Neck: Neck veins are not distended. Heart: Regular, without gallops or murmurs. Lungs: Have equal breath sounds. No crackles or wheezes. Extremities: Have no edema, clubbing, or cyanosis. LABORATORY DATA: Sodium 141, potassium 4.5, chloride 112. Bicarbonate 19, BUN 29, creatinine 1.8. IMPRESSION: 1. Acute kidney injury. Secondary to intravascular volume depletion in the context of an SYLVIA inhibitor. I would continue to hold his SYLVIA inhibitor for up to 2 weeks and then restart as an outpatient. Okay to restart metformin from my perspective. 2. Hematuria. Will remove his Hollins catheter today. If this does not promptly resolve with hematuria, then he needs a Urology evaluation in the hospital. Otherwise, he can see Urology as an outpatient. 3. Metabolic acidosis. Progressively improving. cc: Andrae Hernandez MD
--- NOTE | 2016-12-26 09:39 | EKG Report ---
Test Performed on : 12/26/2016 07:37:43 AM Test Reason : Bradycardia Blood Pressure : / mmHG Vent. Rate : 060 BPM Atrial Rate : 060 BPM P-R Int : 168 ms QRS Dur : 080 ms QT Int : 406 ms P-R-T Axes : 062 082 072 degrees QTc Int : 406 ms Normal sinus rhythm. Normal ECG When compared with ECG of 25-DEC-2016 14:23, (Unconfirmed) No significant change was found Confirmed by Darien Rodriguez MD ([id number]) on 12/30/2016 6:01:40 AM
[2016-12-26] MEDS: VANCOMYCIN 2,000 MG in NS 500 ML IV SCH (09:55)
--- NOTE | 2016-12-26 15:45 | PROGRESS NOTE ---
DATE: 12/26/2016 SUBJECTIVE: Patient continues asymptomatic from a cardiovascular standpoint. OBJECTIVE: Vital Signs: Blood pressure 100/60, heart rate 68 and regular with ECG monitor showing sinus rhythm. Oxygen saturation 97% on room air. Chest: Clear to auscultation. Cardiac: Reveals a regular rate and rhythm without appreciable murmur or gallop. There is no evidence of peripheral edema. LABORATORY DATA: Remarkable for BUN 29 and creatinine 1.8, both decreasing. Serial troponins normal. Echocardiography indicates normal left ventricular dimensions with estimated ejection fraction of 60%. No significant valvular abnormality demonstrated. IMPRESSIONS: 1. Brief episode of chest discomfort in the setting of vomiting. Symptoms atypical for myocardial ischemia. More likely related to upper GI etiology. No objective evidence of myocardial ischemia. 2. Acute renal failure in the setting of nausea and vomiting and intravascular volume depletion. 3. Hypertension. 4. Type 2 diabetes mellitus. 5. Hyperlipidemia. 6. Bipolar disorder. 7. History of previous bladder cancer resection. 8. Sinus bradycardia, asymptomatic. RECOMMENDATIONS: 1. Continue intravenous hydration. 2. No additional cardiovascular testing to be done at this time. Would consider outpatient stress testing. This could reasonably be accomplished with an exercise myocardial perfusion study. 3. Dr. Luna available over the weekend to see on an as-needed basis. cc: Jerry Melgar MD
[2016-12-27] MEDS: LOVENOX SUBQ SCH (01:12)
[2016-12-27] MEDS: NEXIUM IV SCH (01:12)
[2016-12-27] MEDS: SODIUM CHLORIDE 0.9% INJ SCH (01:12)
[2016-12-27] MEDS: NS 1,000 ML IV SCH ×2 (05:16→05:35)
[2016-12-27 05:23] LABS: MANUAL DIFF NEEDED? NO
[2016-12-27 05:36] LABS: BASO% 0.4 % (0.0-0.8); EOS# 0.32 X1000 (0.0-0.7); EOS% 2.4 % (0.0-10.0); HEMATOCRIT 34.5 % (42.0-52.0); HEMOGLOBIN 11.5 g/dL (14.0-18.0); IMM GRAN# 0.02 X1000 (0.0-0.04); IMM GRAN% 0.1 % (0.0-0.5); LYMPH# 3.49 X1000 (1.2-3.4); LYMPH% 26.1 % (20.5-51.1); MCH 30.6 PG (27-31); MCHC 33.3 g/dL (33-37); MCV 91.8 FL (81-99); MONO# 1.24 X1000 (0.11-0.59); MONO% 9.3 % (1.7-9.3); MPV 10.8 FL (7.4-10.4); NEUT% 61.7 % (42.2-75.2); PLT 247 X1000 (130-400); RBC 3.76 XMIL (4.7-6.1)
[2016-12-27] MEDS: ZOSYN 2.25 GM/NS 2.25 GM/50 ML IVPB IV SCH ×2 (05:36→15:10)
[2016-12-27 05:54] LABS: AGAP 12; BUN 17 mg/dL (8-22); CALCIUM 8.1 mg/dL (8.8-10.2); CHLORIDE 111 mmol/L (98-107); COSMO 284; POTASSIUM 4.3 mmol/L (3.5-5.1); SODIUM 142 mmol/L (136-145); TCO2 19 mmol/L (25-35)
[2016-12-27] MEDS: HUMALOG SUBQ SCH ×4 (06:06→20:23)
--- NOTE | 2016-12-27 09:12 | PROGRESS NOTE ---
DATE: 12/26/2016 SUBJECTIVE: The patient is resting comfortably in bed. He states that he feels a lot better today. OBJECTIVE: Vital Signs: Temperature 98.6 degrees, blood pressure 127/59, heart rate 64, respirations 18, O2 saturations 100% on room air, intake 4.4 L, output 3 L. General: This is an elderly male lying in bed in no acute distress. Head: Normocephalic, atraumatic. Heart: S1, S2. Normal. Regular rate and rhythm. Lungs: Clear to auscultation bilaterally. No wheezing. No rales. No rhonchi. Abdomen: Positive bowel sounds. Soft, nontender, nondistended. Extremities: No edema. No cyanosis. No calf tenderness. Neurologic: The patient is alert, oriented x3. LABS: White blood cell count 10.5, hemoglobin 12, hematocrit 36, platelets 272,000. Sodium 141, potassium 4.5, chloride 112, CO2 19, BUN 29, creatinine 1.8, glucose 103, calcium 7.9. ASSESSMENT AND PLAN: 1. Sepsis. So far the blood cultures and urine culture remain negative. The CT of the chest, abdomen and pelvis does not reveal an obvious source of infection. The patient has responded well to intravenous fluid hydration and intravenous antibiotic therapy. The patient is now off of Levophed. 2. Acute kidney injury. This is likely secondary to combination of dehydration and lisinopril usage. The patient has responded well to intravenous fluid hydration. The patient continues to have excellent urine output. Nephrology is following. 3. Gross hematuria. The patient reports that he was not having hematuria prior to admission. The patient does have a history of bladder cancer. We will consult the urologist for further recommendations. 4. Metabolic acidosis. Improved. 5. Asymptomatic bradycardia. Management as per the engineering mechanic. 6. Diabetes mellitus type 2. Continue with sliding scale insulin. 7. The patient is stable for transfer to coronary intensive care unit. Will consult physical therapy. cc: Dionna Costa MD
[2016-12-27] MEDS: SODIUM BICARBONATE PO SCH ×2 (09:18→20:23)
[2016-12-27] MEDS: NICODERM PATCH TD SCH (09:18)
[2016-12-27] MEDS: ZOLOFT PO SCH (09:18)
[2016-12-27] MEDS: VANCOMYCIN 2,000 MG in NS 500 ML IV SCH (09:19)
[2016-12-27] MEDS: VITAMIN D PO SCH (10:17)
[2016-12-27] MEDS ORDERED: FLOMAX PO ONE (10:49)
--- NOTE | 2016-12-27 14:44 | PROGRESS NOTE ---
DATE: 12/27/2016 SUBJECTIVE: The patient states that he feels a lot better today. His urine is less bloody today. OBJECTIVE: Vital Signs: Temperature 98 degrees, blood pressure 125/67, heart rate 67, respirations 17, O2 saturations 100% on room air. General: This is an elderly male, lying in bed, in no acute distress. Head: Normocephalic atraumatic. Heart: S1, S2. Normal. Regular rate and rhythm. Lungs: Clear to auscultation bilaterally. Abdomen: Positive bowel sounds. Soft, nontender, nondistended. Extremities: No edema. No cyanosis. No calf tenderness. Neurologic: The patient is alert and oriented x3. LABS: White blood cell count 13, hemoglobin 11, hematocrit 34, platelets 247,000. Sodium 142, potassium 4.3, chloride 111, CO2 19, BUN 17, creatinine 1.2, glucose 95. Calcium 8.1. ASSESSMENT AND PLAN: 1. Sepsis. Resolved. 2. Acute kidney injury. Resolved. 3. Gross hematuria. Resolved. 4. Metabolic acidosis. Continue on the sodium bicarbonate tablets. 5. Diabetes mellitus type 2. Continue on sliding scale insulin. 6. Leukocytosis. Continue on antibiotic therapy. So far, the cultures remain negative. 7. History of bladder cancer. Aware. 8. Will consult physical therapy. 9. Disposition. The patient should be ready for discharge in the next 24-48 hours. cc: Dionna Costa MD
--- NOTE | 2016-12-27 14:59 | CONSULTATION ---
DATE OF CONSULTATION: 12/27/2016 ATTENDING AND REFERRING PHYSICIAN: Hospitalist. HISTORY OF PRESENT ILLNESS: This 56-year-old male had a several-day history of severe nausea and vomiting. He was very dizzy. He was seen in the emergency room and was admitted. The patient states he had a Hollins catheter placed in the emergency room and as soon as they put the Hollins catheter in, which was very painful, he had hematuria. The patient states this has never occurred before. He states he has an occasional decrease in the force and caliber of urine stream. The patient states he thinks he has bladder cancer. He states in 2006 or 2007, he had something removed from his bladder in [place]. The patient thinks he was told it was cancer. He had no further followup. He states he was not told to follow up. The patient denies any problems with urinary infections. He states he did pass a kidney stone many years ago. He denies any problems with urinary infections. He is not taking any medication for obstructive voiding. He has had no surgery on his prostate. He currently has an indwelling Hollins catheter, and it is blood tinged. PAST MEDICAL HISTORY: Diabetes, elevated cholesterol, hypertension, bipolar disorder, history of schizophrenia. CURRENT MEDICATIONS: Documented on the chart. PAST SURGICAL HISTORY: Possible kidney stone surgery. Bladder tumor removal. SOCIAL HISTORY: He smokes cigarettes and has for many years. ETOH use negative. ALLERGIES: He has no known drug allergies. REVIEW OF SYSTEMS: He states he is usually in good health. He denies any problems with strokes, seizures, recent pulmonary problems. He has no history of heart disease. PHYSICAL EXAMINATION: General: A normally developed, well-nourished, age apparent, white male, oriented in all ways and cooperative. HEENT: Normal for age. Lungs: Clear. Cardiovascular: Regular rate and rhythm. Abdomen: Flat soft, nontender. No hepatosplenomegaly or masses. Normal bowel sounds. : Uncircumcised male. Both testes down. Scrotal exam is normal. Small bilateral hydrocele. Large right inguinal hernia. Left side: Small inguinal hernia. Rectal: Normal sphincter tone. Prostate around 30-40 g, smooth and symmetric. Extremities: No CC or E. Neuro: No focal deficits. LABORATORY EVALUATION: He has a white count of 13.39. Hemoglobin 11.5, hematocrit 34.5, platelets are 247,000. Serum electrolytes are essentially normal. BUN 17, creatinine 1.2. Calcium is 8.1. His CT stone search obtained on 12/24/2016 revealed a 5 cm renal cyst, otherwise, normal collecting system. Incidentally noted was a large right inguinal hernia containing bowel loops. Renal ultrasound confirmed the cyst, otherwise, normal study. IMPRESSION: 1. Traumatic Hollins catheterization resulting in hematuria which is clearing. 2. Left renal cyst. 3. Large right inguinal hernia containing loops of bowel. No obstruction noted. RECOMMENDATIONS: 1. Remove Hollins catheter. 2. Flomax 0.4 mg a day. 3. Will need cystoscopic exam in several weeks as an outpatient to ensure no scar tissue formation from his traumatic Hollins catheterization. Thank you for this consultation. cc: Jerry Marr MD
[2016-12-27] MEDS ORDERED: VANCOMYCIN 1,700 MG in NS 250 ML IV SCH (15:00)
[2016-12-27] MEDS ORDERED: G.I. COCKTAIL PO ONE (20:49)
[2016-12-27] MEDS ORDERED: MORPHINE IV ONE (21:56)
[2016-12-28] MEDS: ZOFRAN IV PRN (00:28)
[2016-12-28] MEDS ORDERED: SODIUM CHLORIDE 0.9% 10 ML ONE (01:46)
[2016-12-28] MEDS: SODIUM CHLORIDE 0.9% INJ SCH (01:53)
[2016-12-28] MEDS: NEXIUM IV SCH (01:53)
[2016-12-28] MEDS: LOVENOX SUBQ SCH (01:54)
[2016-12-28] MEDS: ZOSYN 2.25 GM/NS 2.25 GM/50 ML IVPB IV SCH (04:19)
[2016-12-28 05:44] LABS: MANUAL DIFF NEEDED? NO
[2016-12-28 05:52] LABS: BASO% 0.2 % (0.0-0.8); EOS% 1.9 % (0.0-10.0); HEMATOCRIT 33.3 % (42.0-52.0); HEMOGLOBIN 11.1 g/dL (14.0-18.0); IMM GRAN# 0.03 X1000 (0.0-0.04); IMM GRAN% 0.2 % (0.0-0.5); LYMPH# 2.56 X1000 (1.2-3.4); LYMPH% 16.4 % (20.5-51.1); MCH 30.3 PG (27-31); MCHC 33.3 g/dL (33-37); MONO% 7.7 % (1.7-9.3); MPV 10.9 FL (7.4-10.4); NEUT% 73.6 % (42.2-75.2); PLT 256 X1000 (130-400); RBC 3.66 XMIL (4.7-6.1)
[2016-12-28 06:17] LABS: AGAP 12; BUN 12 mg/dL (8-22); CALCIUM 8.1 mg/dL (8.8-10.2); CHLORIDE 106 mmol/L (98-107); COSMO 278; POTASSIUM 4.1 mmol/L (3.5-5.1); SODIUM 139 mmol/L (136-145); TCO2 21 mmol/L (25-35)
[2016-12-28] MEDS: HUMALOG SUBQ SCH ×4 (06:46→20:26)
--- NOTE | 2016-12-28 08:36 | Diag Imaging Result Doc PS360 ---
EXAM: CHEST-PORTABLE INDICATION: dyspnea TECHNIQUE: One view COMPARISON: 12/24/2016 FINDINGS: There is worsening atelectasis at both lung bases. There has been development of a small right pleural effusion. Cardiac silhouette is stable. IMPRESSION: Worsening bibasilar subsegmental atelectasis with development of a small right pleural effusion. Electronically signed by Ozzy Lynne 12/28/2016 8:33 AM
[2016-12-28] MEDS: VITAMIN D PO SCH (08:48)
[2016-12-28] MEDS: ZOLOFT PO SCH (08:48)
[2016-12-28] MEDS: FLOMAX PO SCH (08:48)
[2016-12-28] MEDS: SODIUM BICARBONATE PO SCH ×2 (08:48→20:26)
[2016-12-28] MEDS: MERREM 500 MG in NS 50 ML IV SCH ×2 (08:48→17:05)
[2016-12-28] MEDS: ASPIRIN EC PO SCH (08:48)
[2016-12-28] MEDS: NICODERM PATCH TD SCH (08:48)
[2016-12-28] MEDS: VANCOMYCIN 2,000 MG in NS 500 ML IV SCH (09:26)
[2016-12-28 10:39] LABS: URINE MICRO REVIEW NEEDED? NO; URINE SOURCE CLEAN CATCH
[2016-12-28 10:46] LABS: BILIRUBIN URINE NEGATIVE (NEGATIVE); BLOOD URINE NEGATIVE (NEGATIVE); COLOR YELLOW; GLUCOSE URINE NEGATIVE (NEGATIVE); LEUKOCYTES URINE NEGATIVE (NEGATIVE); NITRITE URINE NEGATIVE (NEGATIVE); PH URINE 5.5; PROTEIN URINE NEGATIVE (NEGATIVE); SP GRAVITY URINE 1.009; TURBIDITY URINE CLEAR (CLEAR); UROBILINOGEN URINE NORMAL (NORMAL)
[2016-12-28 10:47] LABS: UR EPITHELIAL CELLS <10 /HPF (<10); URINE BACTERIA NEGATIVE /HPF; URINE RBC <10 /HPF (<10); URINE WBC <10 /HPF (<10)
--- NOTE | 2016-12-28 15:40 | PROGRESS NOTE ---
DATE: 12/28/2016 SUBJECTIVE: The patient has been having chest pain for the last 2 nights. He reports it as a heaviness with radiation to his left arm. It is associated with some shortness of breath. At this time, he is chest pain-free. OBJECTIVE: Vital Signs: Temperature 98.4 degrees, blood pressure 120/59, heart rate 61, respirations 16, O2 saturations 95% on room air. General: This is an elderly male, lying in bed, in no acute distress. Head: Normocephalic, atraumatic. Heart: S1, S2. Normal. Regular rate and rhythm. Lungs: Equal air entry bilaterally. No crackles, no rales. Abdomen: Positive bowel sounds. Soft, nontender, nondistended. Extremities: No edema. No cyanosis. Neurologic: The patient is alert oriented x3. LABORATORY: White blood cell count 15, hemoglobin 11, hematocrit 33, platelets 256,000. Sodium 139, potassium 4.1, chloride 106, CO2 21, BUN 12, creatinine 1.2, glucose 102, calcium 8.1. ASSESSMENT AND PLAN: 1. Chest pain. Discussed with Dr. Luna and the patient has been scheduled for a myocardial perfusion scan tomorrow. Continue on aspirin. 2. Acute kidney injury. Resolved. 3. Leukocytosis. The patient is afebrile, and so far the cultures are negative. We will continue to monitor the white count and continue on antibiotic therapy. 4. Hematuria, improved. The patient will follow up with Dr. Marr as outpatient for further intervention. 5. Diabetes mellitus type 2. Continue on sliding scale insulin. 6. Metabolic acidosis, improving. Continue on sodium bicarbonate tablets. 7. History of bladder cancer. Aware. 8. Continue with physical therapy. cc: Dionna Costa MD
[2016-12-29] MEDS: MERREM 500 MG in NS 50 ML IV SCH ×3 (00:04→17:39)
[2016-12-29] MEDS: LOVENOX SUBQ SCH ×2 (00:05→00:17)
[2016-12-29] MEDS: NEXIUM IV SCH (02:52)
[2016-12-29] MEDS: SODIUM CHLORIDE 0.9% INJ SCH (02:52)
--- NOTE | 2016-12-29 05:41 | EKG Report ---
Test Performed on : 12/28/2016 12:01:38 PM Test Reason : chest pain Blood Pressure : / mmHG Vent. Rate : 062 BPM Atrial Rate : 062 BPM P-R Int : 150 ms QRS Dur : 080 ms QT Int : 404 ms P-R-T Axes : 034 073 066 degrees QTc Int : 410 ms Normal sinus rhythm. Normal ECG When compared with ECG of 27-DEC-2016 20:30, (Unconfirmed) No significant change was found Confirmed by Darien Rodriguez MD ([id number]) on 12/30/2016 6:02:38 AM
--- NOTE | 2016-12-29 06:12 | EKG Report ---
Test Performed on : 12/27/2016 08:34:46 AM Test Reason : Chest Pain Blood Pressure : / mmHG Vent. Rate : 072 BPM Atrial Rate : 072 BPM P-R Int : 158 ms QRS Dur : 078 ms QT Int : 382 ms P-R-T Axes : 046 074 067 degrees QTc Int : 418 ms Normal sinus rhythm. Normal ECG When compared with ECG of 26-DEC-2016 07:37, (Unconfirmed) No significant change was found Confirmed by Darien Rodriguez MD ([id number]) on 12/30/2016 6:02:25 AM
--- NOTE | 2016-12-29 07:12 | EKG Report ---
Test Performed on : 12/27/2016 8:30:10 PM Test Reason : No Order in [employer] Blood Pressure : / mmHG Vent. Rate : 074 BPM Atrial Rate : 074 BPM P-R Int : 156 ms QRS Dur : 076 ms QT Int : 370 ms P-R-T Axes : 027 076 072 degrees QTc Int : 410 ms Normal sinus rhythm. Normal ECG When compared with ECG of 27-DEC-2016 08:34, (Unconfirmed) No significant change was found Confirmed by Darien Rodriguez MD ([id number]) on 12/30/2016 6:02:31 AM
[2016-12-29] MEDS: HUMALOG SUBQ SCH ×4 (07:14→20:40)
[2016-12-29] MEDS ORDERED: LEXISCAN ONE (08:56)
[2016-12-29 09:04] LABS: MANUAL DIFF NEEDED? NO
[2016-12-29 09:10] LABS: BASO% 0.4 % (0.0-0.8); EOS# 0.45 X1000 (0.0-0.7); EOS% 3.9 % (0.0-10.0); HEMATOCRIT 35.5 % (42.0-52.0); HEMOGLOBIN 11.8 g/dL (14.0-18.0); IMM GRAN# 0.03 X1000 (0.0-0.04); IMM GRAN% 0.3 % (0.0-0.5); LYMPH# 1.97 X1000 (1.2-3.4); LYMPH% 17.2 % (20.5-51.1); MCH 30.2 PG (27-31); MCHC 33.2 g/dL (33-37); MCV 90.8 FL (81-99); MONO# 0.98 X1000 (0.11-0.59); MONO% 8.6 % (1.7-9.3); MPV 10.9 FL (7.4-10.4); NEUT% 69.6 % (42.2-75.2); PLT 233 X1000 (130-400); RBC 3.91 XMIL (4.7-6.1)
[2016-12-29 09:26] LABS: AGAP 12; BUN 10 mg/dL (8-22); CALCIUM 8.7 mg/dL (8.8-10.2); CHLORIDE 104 mmol/L (98-107); COSMO 280; POTASSIUM 4.2 mmol/L (3.5-5.1); SODIUM 141 mmol/L (136-145); TCO2 25 mmol/L (25-35)
[2016-12-29] MEDS: VITAMIN D PO SCH (10:46)
[2016-12-29] MEDS: FLOMAX PO SCH (10:46)
[2016-12-29] MEDS: SODIUM BICARBONATE PO SCH (10:46)
[2016-12-29] MEDS: NICODERM PATCH TD SCH (10:46)
[2016-12-29] MEDS: ASPIRIN EC PO SCH (10:47)
[2016-12-29] MEDS: ZOLOFT PO SCH (10:47)
[2016-12-29] MEDS: VANCOMYCIN 2,000 MG in NS 500 ML IV SCH (12:04)
[2016-12-29] MEDS ORDERED: DUONEB (A & A) INH PRN (13:19)
--- NOTE | 2016-12-29 14:47 | Diag Imaging Result Document ---
PROCEDURE NAME: MYOCARDIAL PERF SCAN, STR/REST - 12/29/2016 INDICATION: Chest pain. PROCEDURES PERFORMED: 1. One-day stress rest myocardial perfusion imaging. 2. Lexiscan stress. PROCEDURE IN DETAIL: Mr. Green was brought to the nuclear laboratory and had a resting study with injection of 14.8 mCi of technetium-99m sestamibi with usual imaging protocol utilized. He subsequently was brought back and had a Lexiscan stress and at peak stress was injected with 43.3 mCi of technetium-99m sestamibi with usual imaging protocol utilized. FINDINGS: LEXISCAN STRESS RESULTS: 1. Baseline EKG shows sinus rhythm. 2. No ischemic related EKG changes or significant arrhythmias occurred during the course of the study. PERFUSION IMAGING RESULTS: 1. No evidence of abnormal extracardiac uptake. 2. TID ratio 0.90. 3. Perfusion imaging demonstrates a moderate sized, mild intensity defect located in the inferior apical, midinferior and basal inferior segments. This defect appears largely fixed. There is some very slight reversibility but I believe this is artifact related to some gut attenuation in that area. Most likely this is soft tissue attenuation artifact. 4. Normal ejection fraction 71%. End-diastolic volume 151, end-systolic volume 44. Normal wall motion. cc: MD Darien Burt MD
[2016-12-29] MEDS: DUONEB (A & A) INH SCH ×2 (15:36→21:00)
--- NOTE | 2016-12-29 15:40 | PROGRESS NOTE ---
DATE: 12/29/2016 SUBJECTIVE: Patient has no complaints. Breathing is better. No further hematuria. OBJECTIVE: Vital signs: Blood pressure is 130/66, heart rate 75, respiratory 18, temperature 98.3 degrees. Cardiovascular: Regular rate and rhythm. Pulmonary: Bilateral breath sounds. Clear to auscultation. GI: Soft, nontender, nondistended. Bowel sounds are positive. Extremities: No clubbing or cyanosis. Pulmonary: He has rales at the bases, right and left which feel like fine inspiratory rales. He has got a focal infiltrate I think at the right base. May be fluid. PROBLEM LIST: 1. I am going to call this pneumonia. He had an elevated white count. He is on vancomycin and Merrem, but he is clinically responding. His white count down to 11 from a high of 18. We will continue pulmonary toilet and follow. He seems to be doing okay. Saturations are okay. I think he is probably getting close to being able go home. 2. Chest pain, atypical. He is getting a stress test today. If that is negative, I think we can likely put this on his pneumonitis. 3. Hematuria. Urinary retention. He seems to be doing okay from that standpoint or the hematuria at least has resolved. Urine culture is negative. DISPOSITION: 1. I think he can go to the floor 2. I think he can go home tomorrow if he is clinically improved pending workup from his stress test. cc: Lex Leary MD
--- NOTE | 2016-12-29 17:07 | PROGRESS NOTE ---
DATE: 12/29/2016 SUBJECTIVE: The patient relates having some chest discomfort over the weekend which lasted for several hours and with features predominantly atypical for myocardial ischemia. He also describes some abdominal discomfort in the upper abdomen. OBJECTIVE: Vital Signs: Blood pressure 130/66, heart rate 75 and regular. Oxygen saturation 99% on room air. Neck: There is no significant jugular venous distention. Chest: Clear to auscultation. Cardiac examination: A regular rate and rhythm without appreciable murmur or gallop. Abdomen: Soft with some perhaps mild right upper quadrant tenderness but no rebound tenderness. Bowel sounds are normal. Extremities: Without edema. Lexiscan sestamibi study reports fixed moderate size mild intensity defect located in the inferior apical, mid-inferior, and basal inferior segments. Appears largely fixed. Slight reversibility noted was felt to be artifactual. Left ventricular ejection fraction 71%. IMPRESSION: 1. Atypical chest discomfort. Overall, the patient's clinical presentation atypical for acute coronary syndrome, including atypical nature of chest symptoms, fairly extensive nausea and vomiting, presence of acute renal dysfunction on presentation related to intravascular volume depletion and significant leukocytosis. Stress myocardial perfusion imaging report is not very impressive for burden of ischemia. 2. Acute renal failure in the setting of nausea and vomiting and intravascular volume depletion. This has improved. 3. Hypertension. 4. Hyperlipidemia. 5. Type 2 diabetes mellitus. 6. Bipolar disorder. 7. History of previous bladder cancer resection. RECOMMENDATIONS: 1. Repeat troponin level given extended duration of recent chest symptoms. 2. PA and lateral chest x-ray. 3. Abdominal ultrasound to rule out biliary disease. 4. Favor conservative course of management from a cardiology standpoint. Certainly empiric medical therapy for coronary disease it is reasonable to continue. However, it would seem more ideal to follow patient clinically as an outpatient from cardiology standpoint and defer consideration of additional evaluation, such as coronary angiography until later. This was discussed at length with the patient. cc: Jerry Melgar MD
--- NOTE | 2016-12-29 17:56 | Diag Imaging Result Doc PS360 ---
CHEST-2 VIEWS - 12/29/2016 INDICATION: atypical chest pain, leukocytosis TECHNIQUE: COMPARISON: 12/28/2016 FINDINGS: Lungs are better expanded on today's exam. There is decrease in the patchy infiltrates or atelectasis in the lung bases particularly at the right lower lobe. There are probably trace pleural effusions. Heart size and pulmonary vascularity is top normal. IMPRESSION: Significant improvement in aeration of the lungs. Otherwise no change from prior. Electronically signed by Sean Neil 12/29/2016 5:54 PM
[2016-12-30] MEDS: MERREM 500 MG in NS 50 ML IV SCH ×3 (00:33→17:08)
[2016-12-30] MEDS: LOVENOX SUBQ SCH (00:33)
[2016-12-30] MEDS: SODIUM CHLORIDE 0.9% INJ SCH (01:59)
[2016-12-30] MEDS: DUONEB (A & A) INH SCH ×4 (03:43→21:00)
[2016-12-30 05:10] LABS: MANUAL DIFF NEEDED? NO
[2016-12-30] MEDS: VANCOMYCIN 2,000 MG in NS 500 ML IV SCH ×2 (05:15→23:01)
[2016-12-30 05:16] LABS: BASO% 0.4 % (0.0-0.8); EOS# 0.43 X1000 (0.0-0.7); EOS% 3.3 % (0.0-10.0); HEMOGLOBIN 11.4 g/dL (14.0-18.0); IMM GRAN# 0.03 X1000 (0.0-0.04); IMM GRAN% 0.2 % (0.0-0.5); LYMPH# 1.69 X1000 (1.2-3.4); LYMPH% 13.1 % (20.5-51.1); MCH 30.2 PG (27-31); MCHC 33.5 g/dL (33-37); MCV 90.2 FL (81-99); MONO# 1.06 X1000 (0.11-0.59); MONO% 8.2 % (1.7-9.3); MPV 10.5 FL (7.4-10.4); NEUT% 74.8 % (42.2-75.2); PLT 265 X1000 (130-400); RBC 3.77 XMIL (4.7-6.1)
[2016-12-30 05:40] LABS: AGAP 12; BUN 10 mg/dL (8-22); CALCIUM 8.3 mg/dL (8.8-10.2); CHLORIDE 105 mmol/L (98-107); COSMO 282; SODIUM 142 mmol/L (136-145); TCO2 25 mmol/L (25-35)
[2016-12-30] MEDS: HUMALOG SUBQ SCH ×4 (06:17→21:16)
--- NOTE | 2016-12-30 07:39 | Diag Imaging Result Doc PS360 ---
US ABDOMEN-COMPLETE - 12/30/2016 INDICATION: upper abdominal discomfort, leukocytosis COMPARISON: 12/25/2016, 12/24/2016 FINDINGS: Stable left renal cyst measuring 5.7 x 4.9 cm. No hydronephrosis. The right kidney is normal. There is mild wall thickening of the gallbladder measuring 3.8 mm. No gallstones were distention. The liver, pancreas, and spleen are normal. Common bile duct measures 4 mm. Aorta, IVC, and main portal vein are patent. IMPRESSION: Mild gallbladder wall thickening of uncertain significance. Correlate for possible cholecystitis. No gallstones or gallbladder distention. Electronically signed by Sean Neil 12/30/2016 7:36 AM
[2016-12-30] MEDS: ZOLOFT PO SCH (08:32)
[2016-12-30] MEDS: FLOMAX PO SCH (08:32)
[2016-12-30] MEDS: NICODERM PATCH TD SCH (08:32)
[2016-12-30] MEDS: ASPIRIN EC PO SCH (08:32)
[2016-12-30] MEDS: VITAMIN D PO SCH (08:32)
--- NOTE | 2016-12-30 13:15 | PROGRESS NOTE ---
DATE: 12/30/2016 SUBJECTIVE: The patient has no real complaints. Nausea vomiting has resolved. OBJECTIVE: Blood pressure 119/53, heart rate 65, respiratory 26, temperature 98.4 degrees.Cardiovascular: Regular rate and rhythm. Pulmonary: Bilateral breath sounds. Clear to auscultation. GI: Soft, some tenderness right upper quadrant. Nondistended bowel sounds are positive. LABORATORY DATA: White count 12, hemoglobin and hematocrit 11 and 34. Platelets 265,000. Basic was normal. PROBLEM LIST: 1. Atypical chest pain. Negative stress test. Cardiology is following. I do not think they feel there is any acute cardiac issue going on at this point. 2. Hematuria and urinary retention. He seems to be stable from that standpoint. That has resolved. 3. Pneumonia. Clinically he has improved. He is on vancomycin and Merrem. We will continue to treat with those antibiotics and follow clinically. Discharge on Augmentin possibly. 4. Nausea and vomiting. Ultrasound was ordered per cardiology because of his significant complaints. He does have some gallbladder wall thickening which is mild, and in any case, since he did have symptomatology I have progressed with a HIDA which we will not be able to get today, and he will get that tomorrow, and if that is unremarkable can likely go home treating the pneumonia and follow up with GI for his GI issues. cc: Lex Leary MD
--- NOTE | 2016-12-30 14:17 | PROGRESS NOTE ---
DATE: 12/30/2016 CARDIOLOGY PROGRESS NOTE: SUBJECTIVE: Patient continues without chest discomfort or dyspnea. Nausea and vomiting has resolved. His appetite is good. OBJECTIVE: Vital Signs: Blood pressure 120/55, heart rate 65 and regular. Neck: There is no significant jugular venous distention. Chest: Clear to auscultation. Cardiac: A regular rate and rhythm without appreciable murmur or gallop. Extremities: There is no evidence of peripheral edema. DIAGNOSTIC DATA: 1. Abdominal ultrasound reports no gallstones and mild gallbladder wall thickening. 2. Recent abdominal CT, however, reports no evidence of inflammation in the gallbladder. 3. Repeat troponin less than 0.01. 4. PA and lateral chest x-ray reveals no acute infiltrate. IMPRESSION: 1. Chest pain, atypical. Stress test not convincing for underlying coronary disease but somewhat technically difficult. Clinical presentation very atypical for myocardial ischemia. 2. Recent acute renal failure in setting of protracted nausea and vomiting and intravascular volume depletion. This has improved considerably. 3. Suspected pneumonia. 4. Hypertension. 5. Hyperlipidemia. 6. Type 2 diabetes mellitus. 7. Bipolar disorder. 8. History of previous bladder cancer resection. RECOMMENDATIONS: Continue conservative course of management from a cardiovascular standpoint. Empiric medical therapy for possible coronary artery disease to continue. Plan is to follow him up as an outpatient and consider further evaluation once he has recovered from his current acute noncardiac illness. cc: Jerry Melgar MD
[2016-12-30] MEDS: TYLENOL PO PRN ×2 (15:17→21:30)
[2016-12-31] MEDS: SODIUM CHLORIDE 0.9% INJ SCH (01:39)
[2016-12-31] MEDS: LOVENOX SUBQ SCH (01:39)
[2016-12-31] MEDS: MERREM 500 MG in NS 50 ML IV SCH (01:39)
[2016-12-31] MEDS: DUONEB (A & A) INH SCH ×3 (03:00→15:14)
[2016-12-31 05:12] LABS: HEMATOCRIT 33.1 % (42.0-52.0); MCH 30.6 PG (27-31); MCHC 33.2 g/dL (33-37); MCV 92.2 FL (81-99); MPV 10.1 FL (7.4-10.4); RBC 3.59 XMIL (4.7-6.1)
[2016-12-31 05:27] LABS: AGAP 10; ALBUMIN 3.2 g/dL (3.5-5.0); ALKALINE PHOSPHATASE 87 U/L (32-122); BUN 10 mg/dL (8-22); CALCIUM 8.3 mg/dL (8.8-10.2); CHLORIDE 104 mmol/L (98-107); COSMO 281; GOT 16 U/L (10-34); GPT 22 U/L (10-44); POTASSIUM 4.1 mmol/L (3.5-5.1); SODIUM 141 mmol/L (136-145); TCO2 27 mmol/L (25-35); TOTAL PROTEIN 5.9 g/dL (6.3-8.3)
[2016-12-31] MEDS: HUMALOG SUBQ SCH ×2 (06:13→15:11)
--- NOTE | 2016-12-31 11:38 | Diag Imaging Result Doc PS360 ---
EXAM: HIDA SCAN W/ EJECTION FRACTION INDICATION: ?cholecystitis TECHNIQUE: 4.6 mCi of technetium 99 Choletec was administered intravenously and images were obtained usual fashion post administration. COMPARISON: None. FINDINGS: There was normal immediate hepatocellular uptake after administration of the radiotracer. Activity is seen in the gallbladder beginning at about 13 minutes post administration. Activity is seen in small bowel beginning at about 14 minutes post administration. 8 ounces of liquid fatty meal was then administered orally. The calculated gallbladder ejection fraction is 41%. IMPRESSION: Unremarkable HIDA scan. Electronically signed by Ozzy Lynne 12/31/2016 11:36 AM
[2016-12-31] MEDS: VITAMIN D PO SCH (12:18)
[2016-12-31] MEDS: ASPIRIN EC PO SCH (12:18)
[2016-12-31] MEDS: ZOLOFT PO SCH (12:18)
[2016-12-31] MEDS: FLOMAX PO SCH (12:18)
[2016-12-31] MEDS: NICODERM PATCH TD SCH (12:19)
[2016-12-31 12:31] VITALS: BP 150/76
--- NOTE | 2017-01-01 07:57 | DISCHARGE SUMMARY ---
ADMISSION DATE: 12/25/2016 DISCHARGE DATE: 12/31/2016 CONSULTATIONS: 1. Dr. Hernandez with Nephrology. 2. Dr. Jerry Melgar with Cardiology. 3. Dr. Jerry Marr with Urology. PERTINENT PROCEDURES: 1. 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 2. Echocardiogram showed an EF of 60% with normal wall motion. 3. Chest CT showed no pneumonia, bibasilar atelectasis, with trace pleural fluid. 4. Renal ultrasound showed benign left renal cyst, otherwise unremarkable. 5. Lexiscan was negative. 6. Abdominal ultrasound showed mild gallbladder wall thickening of uncertain significance. No gallstones or gallbladder distention. 7. HIDA scan was normal. DISCHARGE DIAGNOSES: 1. Chest pain, atypical. Stress test was negative. The patient was ruled out for myocardial infarction with serial troponin. 2. Acute kidney injury secondary to intravascular volume depletion in context of an angiotensin- converting enzyme inhibitor, completely resolved. The patient will start his angiotensin- converting enzyme inhibitor back on 01/12/2017, and he has been okay to restart his metformin per Nephrology. 3. Metabolic acidosis, improved. 4. Bladder cancer history, aware. 5. Traumatic Hollins catheterization resulting in hematuria, that has resolved. The patient's Hollins catheter was removed, and started on Flomax. He will follow up with Dr. Marr for a cystoscopic exam in a few weeks on an outpatient basis to ensure there is no scar tissue formation. 6. Sepsis, likely secondary to be from pneumonia. The patient responded to intravenous antibiotic. Being discharged on oral Levaquin. 7. Pneumonia, clinically improved. The patient has been on vancomycin and __ Discharged on Levaquin. 8. Nausea, vomiting, and abdominal pain. The patient has had a full workup. He will need to follow up with Gastroenterology. These issues have resolved. HOSPITAL COURSE: Mr. Green is a 56-year-old male who carries a past medical history of diabetes, hypercholesterolemia, hypertension, vitamin D deficiency, who presented to the ED complaining of nausea and vomiting, generalized weakness. He also reported chest pain, described as someone sitting on his chest. It was located in the central thoracic area, and lasted between 3 and 5 minutes, resolved by itself. No aggravating or alleviating factors. It was associated with dizziness, and he felt like he was going to pass out. The patient was found to be hypotensive with a high white blood cell count, fever, and tachycardic. The patient met the sepsis criteria, so he was started on the protocol. He was started on aggressive fluid resuscitation and broad-spectrum antibiotics, and started on pressors. He also was noted to have an acute kidney injury, and a consult for Nephrology. Abdomen and pelvis CT did show a large right inguinal hernia containing multiple bowel loops, but no bowel obstruction , diverticulosis, left renal cyst, fatty infiltration of the liver. Chest CT showed no pneumonia , bibasilar atelectasis with trace pleural fluid. Renal ultrasound showed benign left renal cyst, otherwise unremarkable. His SYLVIA as well as metformin was held due to his kidney injury. The patient responded well to IV hydration and antibiotic therapy. He was able to come off his pressors. He continued to have excellent urine output. His acute kidney injury resolved. He did have gross hematuria. Urology was consulted given that he did have a history of bladder cancer. Dr. Marr felt it was secondary to traumatic injury from Hollins placement. He discontinued Hollins, and started Flomax. The patient was able to move to step-down unit on [facility]. Once the patient was moved to [facility], he did complain of chest pain for 2 nights. Cardiology was consulted. He did undergo a stress test that was negative, and was continued on aspirin. They felt that his chest pain was probably being caused from pneumonitis. The patient also had a full workup for his abdominal pain and nausea and vomiting that were ordered per Cardiology because of significant complaints from the patient. He did have some gallbladder wall thickening, which was mild. His HIDA scan was negative. The patient's nausea and vomiting have resolved. He is having abdominal pain. He can follow up with GI after his discharge. The patient is clinically stable to go home on p.o. antibiotics. VITAL SIGNS: Temperature is 98.1 degrees, heart rate 67, respirations 16, blood pressure 150/76, O2 is 98% on room air. DISCHARGE DIET: Diabetic. DISCHARGE MEDICATIONS: 1. Aspirin 81 mg p.o. daily. 2. Vitamin D 5000 units p.o. as directed. 3. Klonopin 0.5 mg p.o. b.i.d. p.r.n. 4. Levaquin 500 mg p.o. daily for 7 days. 5. Lisinopril 20 mg p.o. daily. The patient will start this on 01/12/2017. 6. Metformin 500 mg p.o. b.i.d. 7. Prilosec 40 mg p.o. daily. 8. Zoloft 100 mg p.o. daily. 9. Flomax 0.4 mg p.o. daily. FOLLOWUP: The patient is being discharged home with his . He is to follow up with Dr. Jerry Marr as an outpatient for a cystoscopic exam to assess for any scar tissue. He can follow up with Dr. Melgar for further outpatient workup. He will need to be given a list of PCPs accepting new patients, and follow up in 1 to 2 weeks. The patient can return to the ED for any worsening of symptoms. He is to take all medications as prescribed. DISCHARGE TIME: 30 minutes. Dictated by JACKELINE Stone for Lex Leary MD cc: Lex Leary MD pt examined, agree with above APENOT MTDD
== END 2016-12-31 16:18 | disposition home or self-care (01) ==
LOC: ED 21:04 → SUATTDRO 12-25 00:34 → ICU 12-25 00:34 → 3S 12-26 16:19 → 4N 12-31 08:09
PROVIDERS: ATTEND Internal Medicine